=== PATIENT | female | born 1955 | race Caucasian/White ===

== ENCOUNTER → 2021-02-18 | Outpatient (CLI) | payer OTHER ==
--- NOTE | 2021-02-18 14:33 | KCIC ---
EXAM: CT coronary artery calcium screening; radiologist over read. HISTORY: Mixed hyperlipidemia. TECHNIQUE: Computed tomographic images of the chest were obtained without contrast. Multiplanar refor matting was performed. *One or more of the following individualized dose reduction techniques were utilized for this examina tion: 1. Automated exposure control. 2. Adjustment of the mA and/or kV according to patient size. 3. Use of iterative reconstruction technique. COMPARISON: None. FINDINGS: The heart is upper normal in size. There is a small amount of anterior pericardial fluid. T here is calcified atherosclerotic plaque involving the and visualized thoracic aorta. There is calcif ied atherosclerotic plaque involving the coronary arteries. There is no lymphadenopathy. There are im planted breast prostheses. There is severe emphysema. There is no infiltrate, pleural effusion or pne umothorax. There is scarring within the medial right middle lobe and lingula. There is posterior depe ndent and basilar atelectasis. There is a simple cyst within the right hepatic lobe measuring 4.0 cm. There is no acute finding involving the upper abdomen or osseous structures. Coronary artery calcium score: Left main artery - 0 Left anterior descending - 252.9 Left circumflex - 0.2 Right coronary artery - 603.7 Posterior descending artery - 0 TOTAL = 856.8 IMPRESSION: 1. Coronary artery calcium score of 856.8. There is a large amount of calcified atherosclerotic plaqu e. There is a high risk for a cardiac vascular event. 2. Severe emphysema. Electronically signed by: Marilyn Mims MD (02/18/2021 2:31 PM) [id number]
== END ==
LOC: KCIC CT 12:58
PROVIDERS: ATTEND Family Medicine
DX: I25.10 Atherosclerotic heart disease of native coronary artery without angina pectoris (principal); I70.0 Atherosclerosis of aorta; E78.2 Mixed hyperlipidemia; J98.4 Other disorders of lung; J43.9 Emphysema, unspecified; J98.11 Atelectasis; K76.89 Other specified diseases of liver
CPT/HCPCS: 75571